=== PATIENT | male | born 1975 | race Caucasian/White ===

== ENCOUNTER 2023-12-09 08:45 | Day surgery (SDC) | payer SELFPAY ==
[2023-12-02 09:10] VITALS: BMI 25.8
[~2023-12-09 08:45] MED LIST: LACTATED RINGERS SOLUTION 1,000 ML IV SCH; ONDANSETRON 4 MG/2 ML VIAL IVPUSH PRN; PROMETHAZINE HCL 25 MG/1 ML VIAL IVPB PRN; oxyCODONE HCL 5 MG TABLET PO PRN
[2023-12-09] MEDS ORDERED: ONDANSETRON 4 MG/2 ML VIAL ONE (11:30)
[2023-12-09] MEDS ORDERED: DEXAMETHASONE SOD PHOSPHATE 4 MG/1 ML VIAL ONE (11:30)
[2023-12-09] MEDS ORDERED: ceFAZolin SODIUM 1 GM VIAL ONE (11:32)
[2023-12-09] MEDS ORDERED: PROPOFOL 40 ML ONE (11:35)
[2023-12-09] MEDS ORDERED: LIDOCAINE HCL/PF 2% SDV 5ML VIAL ONE (11:36)
[2023-12-09] MEDS ORDERED: SUCCINYLCHOLINE CHLORIDE 200 MG/10 ML SYRINGE ONE (12:19)
[2023-12-09] MEDS ORDERED: MIDAZOLAM HCL 2 MG/2 ML SINGLE DOSE VIAL ONE (12:24)
[2023-12-09] MEDS ORDERED: oxyCODONE HCL 5 MG TABLET PO PRN (13:38)
[2023-12-09] MEDS ORDERED: PROMETHAZINE HCL 25 MG/1 ML VIAL IVPB PRN (13:38)
[2023-12-09] MEDS ORDERED: LACTATED RINGERS SOLUTION 1,000 ML IV SCH (13:45)
[2023-12-09] MEDS ORDERED: NEOSTIGMINE METHYLSULFATE 0.5 MG/1 ML - 10 ML MDV ONE (14:38)
[2023-12-09] MEDS ORDERED: PROPOFOL 20 ML ONE (16:04)
[2023-12-09] MEDS ORDERED: KETOROLAC TROMETHAMINE 30 MG/1 ML VIAL ONE (16:20)
[2023-12-09 17:30] VITALS: TEMP 98
[2023-12-09 17:32] VITALS: RESP 18
[2023-12-09 17:49] VITALS: BP 127/77; PULSE 89
== END 2023-12-09 18:20 | disposition home or self-care (01) ==
LOC: FASU 08:45
PROVIDERS: ATTEND Surgery
PROC: 0J073ZZ Alteration of Back Subcutaneous Tissue and Fascia, Percutaneous Approach (ICD-10-PCS; principal; 2023-12-09 14:31)
DX: E65 Localized adiposity (principal)
CPT/HCPCS: 94760